=== PATIENT | male | born 1955 | race American Indian/Alaskan Native ===

== ENCOUNTER 2016-10-03 21:18 | Emergency (ER) | payer OTHER ==
--- NOTE | 2016-10-04 00:17 | XRay Report ---
FINAL REPORT EXAM: XR HIP 2-3V LT HISTORY: hip pblm TECHNIQUE: Single-view pelvis with additional view of the left hip. Two images PRIORS: None. FINDINGS: Bone mineralization appears within normal limits. Sequelae from a ORIF are seen in the left hemipelvis. No acute fracture is identified. Vascular calcifications are noted. IMPRESSION: 1. Sequelae from prior trauma and ORIF are noted. 2. No definite acute fracture is identified.
[2016-10-04] MEDS ORDERED: CATAPRES PO ONE (10:19)
--- NOTE | 2016-10-04 10:24 | Emergency Department Report ---
ED Fall HPI - General Chief Complaint: Fall Stated Complaint: HIGH BP/FALL Time Seen by Provider: 10/04/16 10:13 Source: patient, family Mode of arrival: Ambulatory - History of Present Illness Initial Comments: Patient is stated that he fell this morning tripped complained of left hip injury patient also have a high blood pressure never been diagnosed with hypertension never been on any medication for that. MD Complaint: fall -: This morning Fall From: standing Fall Witnessed: yes, by family Place Fall Occurred: home Loss of Consciousness: none Prolonged Down Time?: no Symptoms Prior to Fall: none Location: pelvis Severity: moderate Context: tripped/slipped - Related Data Previous Rx's Medication Instructions Recorded Last Taken Type Ketorolac [Toradol] 10 mg PO Q6H PRN #20 tablet 10/04/16 Unknown Rx amLODIPine [Norvasc] 5 mg PO DAILY #30 tab 10/04/16 Unknown Rx Allergies Allergy/AdvReac Type Severity Reaction Status Date / Time No Known Allergies Allergy Unverified 10/03/16 22:39 ED Review of Systems ROS: Stated complaint: HIGH BP/FALL Other details as noted in HPI Comment: All other systems reviewed and negative Constitutional: denies: chills, fever Respiratory: denies: cough, wheezing Cardiovascular: denies: chest pain Gastrointestinal: denies: abdominal pain, nausea Musculoskeletal: denies: back pain Neurological: denies: headache, weakness, numbness, paresthesias, confusion, abnormal gait, vertigo ED Past Medical Hx - Past Medical History Previous Medical History?: No - Surgical History Past Surgical History?: Yes Additional Surgical History: Hip - Social History Smoking Status: Current Every Day Smoker Substance Use Type: None - Medications Home Medications: Home Medications Medication Instructions Recorded Confirmed Last Taken Type Ketorolac [Toradol] 10 mg PO Q6H PRN #20 tablet 10/04/16 Unknown Rx amLODIPine [Norvasc] 5 mg PO DAILY #30 tab 10/04/16 Unknown Rx ED Physical Exam - General Limitations: Physical Limitation General appearance: alert, in no apparent distress - Head Head exam: Present: atraumatic - Eye Eye exam: Present: normal appearance, PERRL, EOMI - ENT ENT exam: Present: normal exam, normal orophraynx - Neck Neck exam: Present: normal inspection, full ROM. Absent: tenderness, meningismus, lymphadenopathy - Respiratory Respiratory exam: Present: normal lung sounds bilaterally. Absent: wheezes, rhonchi, stridor, chest wall tenderness, accessory muscle use, decreased breath sounds, prolonged expiratory - Cardiovascular Cardiovascular Exam: Present: regular rate, normal rhythm, normal heart sounds - GI/Abdominal GI/Abdominal exam: Present: soft. Absent: tenderness, guarding, rebound - Extremities Exam Extremities exam: Present: normal inspection, full ROM - Expanded Lower Extremity Exam Left Hip exam: Present: normal inspection. Absent: full ROM, tenderness, swelling, abrasion, laceration, ecchymosis, deformity Knee exam: Present: normal inspection, full ROM. Absent: tenderness Lower Leg exam: Present: normal inspection, full ROM Ankle exam: Present: normal inspection, full ROM Foot/Toe exam: Present: normal inspection, full ROM Neuro vascular tendon exam: Present: no vascular compromise - Neurological Exam Neurological exam: Present: alert, oriented X3, CN II-XII intact - Skin Skin exam: Present: warm, intact ED Course Vital Signs 10/03/16 10/04/16 10/04/16 22:39 04:52 07:48 Temperature 98.4 F 98.5 F Pulse Rate 76 76 Respiratory 18 18 Rate Blood Pressure 182/108 168/98 147/87 O2 Sat by Pulse 98 98 Oximetry 10/04/16 10/04/16 10/04/16 08:00 08:15 08:31 Temperature Pulse Rate 65 82 67 Respiratory 15 11 L 15 Rate Blood Pressure 150/96 143/101 165/105 O2 Sat by Pulse 97 99 98 Oximetry 10/04/16 10/04/16 10/04/16 08:45 09:00 09:03 Temperature Pulse Rate 74 67 Respiratory 13 16 18 Rate Blood Pressure 168/98 167/105 O2 Sat by Pulse 97 98 98 Oximetry 10/04/16 10/04/16 10/04/16 09:15 09:30 09:45 Temperature Pulse Rate 67 63 64 Respiratory 14 16 12 Rate Blood Pressure 166/106 163/99 185/101 O2 Sat by Pulse 98 98 96 Oximetry 10/04/16 10/04/16 10/04/16 10:00 10:15 10:24 Temperature Pulse Rate 66 65 66 Respiratory 15 17 Rate Blood Pressure 179/100 185/97 179/100 O2 Sat by Pulse 100 98 Oximetry 10/04/16 10:30 Temperature Pulse Rate 63 Respiratory 15 Rate Blood Pressure 182/111 O2 Sat by Pulse 100 Oximetry - Reevaluation(s) Reevaluation #1: 10/04/16 12:14 Blood pressure spelled well to clonidine. We'll discharge the patient home with Norvasc 5 mg to follow up with his primary doctor. Critical care attestation.: If time is entered above; I have spent that time in minutes in the direct care of this critically ill patient, excluding procedure time. ED Disposition Clinical Impression: Left hip pain, Hypertension Disposition: - TO HOME OR SELFCARE Is pt being admited?: No Condition: Stable Instructions: Hypertension (ED) Referrals: PRIMARY CARE, [Primary Care Provider] - 3-5 Days
[2016-10-04 10:55] VITALS: BP 182/111
== END 2016-10-04 12:53 | disposition home or self-care (01) ==
LOC: ED 21:18
DX: M25.552 Pain in left hip (principal); I10 Essential (primary) hypertension; F17.210 Nicotine dependence, cigarettes, uncomplicated
CPT/HCPCS: 99283